=== PATIENT | male | born 1980 | race Hispanic/Latino ===

== ENCOUNTER 2017-12-06 17:25 | Emergency (ER) | payer OTHER ==
[2017-12-06] MEDS: LIDOCAINE 2% W/EPIN INJ 20ML **PRES FREE INJ (19:07)
[2017-12-06] MEDS: NORCO 5/325MG TABLET (BULK FOR ED) PO (19:59)
== END 2017-12-06 20:02 | disposition home or self-care (01) ==
LOC: M ED 17:25
DX: S51.812A Laceration without foreign body of left forearm, initial encounter (principal); S56.922A Laceration of unspecified muscles, fascia and tendons at forearm level, left arm, initial encounter; W27.8XXA Contact with other nonpowered hand tool, initial encounter; Y92.89 Other specified places as the place of occurrence of the external cause; F43.10 Post-traumatic stress disorder, unspecified; F17.210 Nicotine dependence, cigarettes, uncomplicated; Z88.5 Allergy status to narcotic agent; Z88.8 Allergy status to other drugs, medicaments and biological substances; Z79.899 Other long term (current) drug therapy
CPT/HCPCS: 12002